=== PATIENT | male | born 1970 | race Caucasian/White ===

== ENCOUNTER 2017-09-26 21:35 | Inpatient (IN) | payer BC ==
[2017-09-26 22:22] LABS: ADD MAN DIFF? NO; BASO # 0.1 x10^3/uL (0.0-0.2); BASO % 1 % (0-3); EOS # 0.3 x10^3/uL (0.0-0.7); EOS % 3 % (0-3); HEMOGLOBIN 14.6 g/dL (13.0-17.5); LYMPH # 2.6 x10^3/uL (1.0-4.8); LYMPH % 25 % (24-48); MEAN CORPUSCULAR HEMOGLOBIN 34 pg (25-35); MEAN CORPUSCULAR HGB CONC 36 g/dL (31-37); MEAN CORPUSCULAR VOLUME 95 fL (79-100); MONO # 1.3 x10^3/uL (0.0-1.1); MONO % 12 % (0-9); NEUT # 6.2 x10^3uL (1.8-7.7); NEUT % 59 % (31-73); PLATELET COUNT 360 x10^3/uL (140-400); RED BLOOD COUNT 4.33 x10^6/uL (4.30-5.70); RED CELL DISTRIBUTION WIDTH 12.4 % (11.5-14.5); WHITE BLOOD COUNT 10.4 x10^3/uL (4.0-11.0)
[2017-09-26 22:32] LABS: ANION GAP 10 (6-14); BLOOD UREA NITROGEN 6 mg/dL (8-26); BUN/CREATININE RATIO 8 (6-20); CALCIUM 9.2 mg/dL (8.5-10.1); CARBON DIOXIDE 26 mmol/L (21-32); CHLORIDE 97 mmol/L (98-107); CREATININE 0.8 mg/dL (0.7-1.3); GFR 102.7; GLUCOSE 154 mg/dL (70-99); POTASSIUM 3.5 mmol/L (3.5-5.1); SODIUM 133 mmol/L (136-145)
[2017-09-26 22:38] LABS: ALBUMIN 4.1 g/dL (3.4-5.0); ALBUMIN/GLOBULIN RATIO 1.1 (1.0-1.7); ALK PHOS 54 U/L (46-116); ALT (SGPT) 39 U/L (16-63); AST (SGOT) 19 U/L (15-37); TOTAL BILIRUBIN 0.4 mg/dL (0.2-1.0); TOTAL PROTEIN 7.9 g/dL (6.4-8.2)
[2017-09-26 22:44] LABS: NT-PRO BNP 8 pg/mL (0-124)
[2017-09-26 22:55] LABS: ETHANOL 298 mg/dL (0-10); TROPONINI < 0.017 ng/mL (0.000-0.055)
[2017-09-26] MEDS: IV NORMAL SALINE 1000ML BAG 1,000 ML IV (23:15)
[2017-09-27 02:48] LABS: TROPONINI < 0.017 ng/mL (0.000-0.055)
[2017-09-27] MEDS ORDERED: ONDANSETRON PF 4 MG/2 ML VIAL. IV (03:30)
== END 2017-09-27 11:15 | disposition home or self-care (01) | DRG 897 ==
LOC: 6 SOUTH 09-27 02:20 → ER 21:35
DX: F10.229 Alcohol dependence with intoxication, unspecified (principal); E11.9 Type 2 diabetes mellitus without complications; R07.9 Chest pain, unspecified; R20.0 Anesthesia of skin; E78.5 Hyperlipidemia, unspecified; I10 Essential (primary) hypertension; Y90.8 Blood alcohol level of 240 mg/100 ml or more; R53.1 Weakness
CPT/HCPCS: 36415; 70450; 80053; 83880; 84484; 85025; 93005; 96360; 99285-25; G0480; J7030